=== PATIENT | male | born 1980 | race Caucasian/White ===

== ENCOUNTER 2018-03-05 08:03 | Emergency (ER) | payer OTHER ==
[2018-03-05] MEDS ORDERED: Adacel (T-DAP) 0.5 ML VIAL ONE (08:18)
[2018-03-05] MEDS ORDERED: Lidocaine 1% 20 ML MDV ONE (08:24)
[2018-03-05] MEDS ORDERED: Bacitracin Zinc 1 Packet ONE (08:48)
--- NOTE | 2018-03-05 09:10 | RAD ---
THREE VIEWS LEFT HAND: INDICATION: Laceration of the left hand in the snuffbox are. COMPARISON: None. FINDINGS: No radiopaque foreign body is evident. No acute osseous abnormality is noted. IMPRESSION: No radiopaque foreign body. POS: CET
== END 2018-03-05 08:59 | disposition home or self-care (01) ==
LOC: NAV ERS 08:03
DX: S61.412A Laceration without foreign body of left hand, initial encounter (principal); I10 Essential (primary) hypertension; W22.8XXA Striking against or struck by other objects, initial encounter
CPT/HCPCS: 12001; 90471; 90715; J2001